=== PATIENT | female | born 1995 | race Caucasian/White ===

== ENCOUNTER 2017-10-18 18:27 | Emergency (ER) | payer OTHER ==
[2017-10-18] MEDS ORDERED: NS 500 ML IV ONE ×2 (18:50)
--- NOTE | 2017-10-18 18:50 | EDPHY ---
H & P Stated Complaint: Feinted earlier today, LOC. Time Seen by Provider: 10/18/17 18:49 HPI/ROS: HPI: This is a 21-year-old female who presents with Chief Complaint: Fainted earlier today, LOC. Location: syncope Quality: Body Duration: Today Signs and Symptoms: no shortness of breath at rest, no shortness of breath on exertion, no cough, no chest pain, no palpitations, no lower extremity edema, no wheezing, no fever, no injury/trauma, no headache, no fever, Timing: Acute, resolved Severity: Moderate Context: Patient has a history of syncopal episodes throughout high school presents today with a fainting episode that lasted approximately 15-30 seconds while she was at the school fair. She reports feeling lightheaded and dizzy prior to fainting. She reports that she did eat today and drink water but she is not sure if it was in off. Parents report that she had an echocardiogram several years ago that was normal. Describes instances throughout the last several years where she crosses her legs are puts her lower extremities in awkward positions in the fall asleep. She will quickly stand from sitting to the standing and and feel dizzy with floaters. Vegetarian recently. History vitamin D deficiency and not taking any supplementation. Modifying Factors: None Comment: ROS: see HPI Constitutional: No fever, no chills, no weight loss Eyes: No blurred vision Respiratory: No shortness of breath, no cough Cardiovascular: No chest pain, no palpitations, no lower extremity edema Gastrointestinal: No nausea, no vomiting, no diarrhea Genitourinary: No dysuria Extremities: No myalgias Neurologic: No weakness, no numbness Skin: No rashes Hematologic: No bruising, no bleeding MEDICAL/SURGICAL/SOCIAL HISTORY: Medical history: Generally healthy. Does not take any regular medications. Surgical history: Denies Social history: Student. Lives with parents CONSTITUTIONAL: Extremely well-appearing, teenage white female, awake and alert , no obvious distress HEENT: Atraumatic and normocephalic, PERRL, EOMI. Tympanic membranes clear. Oropharynx clear, no exudate and moist pink mucosa. Airway patent. No lymphadenopathy. No meningismus. Cardiovascular: Normal S1/S2, regular rate, regular rhythm, without murmur rub or gallop. PULMONARY/CHEST: Symmetrical and nontender. Clear to auscultation bilaterally. Good air movement. No accessory muscle usage. ABDOMEN: Soft, nondistended, nontender, no rebound, no guarding, no peritoneal signs, no masses or organomegaly. No CVAT. EXTREMITIES: 2/2 pulses, strength 5/5, no deformities, no clubbing, no cyanosis or edema. NEUROLOGICAL: no focal neuro deficits. GCS 15. SKIN: Warm and dry, no erythema. no rash. Good capillary refill. Source: Patient, Family (Parents) Exam Limitations: No limitations - Personal History LMP (Females 10-55): Extended Cycle BCP/Inj Current Tetanus Diphtheria and Acellular Pertussis (TDAP): Yes - Medical/Surgical History Hx Asthma: No Hx Chronic Respiratory Disease: No Hx Diabetes: No Hx Cardiac Disease: No Hx Renal Disease: No Hx Cirrhosis: No Hx Alcoholism: No Hx HIV/AIDS: No Hx Splenectomy or Spleen Trauma: No Other PMH: Previous syncopal episodes. - Social History Smoking Status: Never smoked Constitutional: Initial Vital Signs Temperature (C) 36.7 C 10/18/17 18:36 Heart Rate 110 H 10/18/17 18:36 Respiratory Rate 18 10/18/17 18:36 Blood Pressure 130/93 H 10/18/17 18:36 O2 Sat (%) 98 10/18/17 18:36 O2 Delivery Mode Room Air Allergies/Adverse Reactions: azithromycin [From Zithromax] Allergy (Verified 10/18/17 18:41) cefdinir [From Omnicef] Allergy (Verified 10/18/17 18:41) cephalexin Allergy (Verified 10/18/17 18:41) Penicillins Allergy (Verified 10/18/17 18:41) Home Medications: Medication Instructions Recorded NK [No Known Home Meds] 10/18/17 Medical Decision Making - Diagnostics EKG Interpretation: 12 lead EKG: Indication: Syncope Rhythm: Normal sinus rhythm, rate 90 beats per minute [place]: Normal Intervals: Normal QRS: Normal ST segments: Normal INTERPRETATION: no acute ischemic/arrhythmia The 12 lead EKG was interpreted by myself and with attending. Imaging Results: Imaging Impressions Chest X-Ray 10/18/17 19:27 Impression: No acute abnormality. ED Course/Re-evaluation: EKG, chest x-ray one view, labs, urinalysis, orthostatics, IV fluids Symptoms resolved upon arrival to the emergency room Afebrile heart rate of 110 beats per minute EKG shows no signs of arrhythmia/acute ischemic changes Orthostatics positive; heart rate increased by 30 points; blood pressure remained stable. Given 2 L normal saline. Labs reviewed and grossly unremarkable Patient will be discharged home with Cardiology follow-up This patient was seen under the supervision of my secondary supervising physician. I evaluated care for this patient independently. Discussed this patient with attending who did not see the patient. Differential Diagnosis: Dizziness including but not limited to peripheral and central causes of vertigo , orthostatic causes including dehydration, and blood loss. - Data Points Laboratory Results: Laboratory Results 10/18/17 19:35 10/18/17 19:35 10/18/17 10/18/17 10/18/17 19:35 19:35 19:35 WBC 8.75 10^3/uL 10^3/uL (3.80-9.50) RBC 4.91 10^6/uL 10^6/uL (4.18-5.33) Hgb 14.4 g/dL g/dL (12.6-16.3) Hct 43.0 % % (38.0-47.0) MCV 87.6 fL fL (81.5-99.8) MCH 29.3 pg pg (27.9-34.1) MCHC 33.5 g/dL g/dL (32.4-36.7) RDW 11.9 % % (11.5-15.2) Plt Count 362 10^3/uL 10^3/uL (150-400) MPV 9.3 fL fL (8.7-11.7) Neut % (Auto) 59.6 % % (39.3-74.2) Lymph % (Auto) 32.1 % % (15.0-45.0) [place] % (Auto) 7.0 % % (4.5-13.0) Eos % (Auto) 0.5 % L % (0.6-7.6) Baso % (Auto) 0.6 % % (0.3-1.7) Nucleat RBC Rel Count 0.0 % % (0.0-0.2) Absolute Neuts (auto) 5.22 10^3/uL 10^3/uL (1.70-6.50) Absolute Lymphs (auto) 2.81 10^3/uL 10^3/uL (1.00-3.00) Absolute Monos (auto) 0.61 10^3/uL 10^3/uL (0.30-0.80) Absolute Eos (auto) 0.04 10^3/uL 10^3/uL (0.03-0.40) Absolute Basos (auto) 0.05 10^3/uL 10^3/uL (0.02-0.10) Absolute Nucleated RBC 0.00 10^3/uL 10^3/uL (0-0.01) Immature Gran % 0.2 % % (0.0-1.1) Immature Gran # 0.02 10^3/uL 10^3/uL (0.00-0.10) Sodium 143 mEq/L mEq/L (135-145) Potassium 4.6 mEq/L mEq/L (3.5-5.2) Chloride 102 mEq/L mEq/L (97-110) Carbon Dioxide 24 mEq/l mEq/l (22-31) Anion Gap 17 mEq/L H mEq/L (8-16) BUN 12 mg/dL mg/dL (7-23) Creatinine 0.7 mg/dL mg/dL (0.6-1.0) Estimated GFR > 60 Glucose 99 mg/dL mg/dL (70-100) Calcium 10.3 mg/dL mg/dL (8.5-10.4) Total Bilirubin 0.5 mg/dL mg/dL (0.1-1.4) Conjugated Bilirubin 0.3 mg/dL mg/dL (0.0-0.5) Unconjugated Bilirubin 0.2 mg/dL mg/dL (0.0-1.1) AST 28 IU/L IU/L (14-46) ALT 39 IU/L IU/L (9-52) Alkaline Phosphatase 58 IU/L IU/L (38-126) Total Protein 8.0 g/dL g/dL (6.3-8.2) Albumin 5.0 g/dL g/dL (3.5-5.0) Beta HCG, Qual NEGATIVE Medications Given: Discontinued Medications Sodium Chloride (Ns) 500 mls @ 1,000 mls/hr IV EDNOW ONE PRN Reason: Protocol Stop: 10/18/17 19:19 Last Admin: 10/18/17 19:30 Dose: 500 mls Sodium Chloride (Ns) 500 mls @ 0 mls/hr IV EDNOW ONE; Wide Open PRN Reason: Protocol Stop: 10/18/17 18:51 Last Admin: 10/18/17 19:30 Dose: 500 mls Departure - Departure Disposition: Home, Routine, Self-Care Clinical Impression: POTS (postural orthostatic tachycardia syndrome) Fainting Qualifiers: Syncope type: unspecified Qualified Code(s): R55 - Syncope and collapse Condition: Good Instructions: Syncope in Children (ED) Additional Instructions: Please restrain from any physical or contact activity that exceeds more than 30 min at a time. Follow-up with Cardiology in the next several weeks. Would benefit from a tilt- table test and repeat echocardiogram. Consume a minimum of 8-10 glasses of water or electrolyte fluid replacement drinks that include Gatorade, Powerade, Pedialyte. Eat frequent small meals throughout the day. You would benefit from B12 and vitamin D levels being tested outpatient by your primary care provider. Referrals: NEEMA ELLISON [Other] - As per Instructions
--- NOTE | 2017-10-18 19:25 | CPEKG ---
Heart Rate: 90 RR Interval: 667 P-R Interval: 140 QRSD Interval: 92 QT Interval: 356 QTC Interval: 436 P [place]: 79 QRS [place]: 95 T Wave [place]: -1 EKG Severity - OTHERWISE NORMAL ECG - EKG Impression: SINUS RHYTHM EKG Impression: BORDERLINE RIGHT AXIS DEVIATION Electronically Signed By: Rufino Mills 18-Oct-2017 20:06:33
[2017-10-18 19:43] LABS: PLATELET COUNT 362 10^3/uL (150-400)
[2017-10-18 21:02] VITALS: BP 97/65; RESP 16; TEMP 97.9; O2SAT 96
[2017-10-18 21:03] VITALS: PULSE 88
== END 2017-10-18 21:02 | disposition home or self-care (01) ==
DX: R55 Syncope and collapse (principal); I49.8 Other specified cardiac arrhythmias